=== PATIENT | female | born 1980 | race Caucasian/White ===

== ENCOUNTER 2019-04-22 17:09 | Emergency (ER) | payer MEDICAID ==
[~2019-04-22] VITALS: Ht 167.6 cm; Wt 71.2 kg
--- NOTE | 2019-04-22 17:40 | NUR ---
PT C/O RUQ ABD PAIN SINCE 11 AM THIS MORNING AFTER HEAVILY DRINKING LAST NOC. PT IS FROM [place] AND TOLD BY DOCTOR TO DRINK MINIMALLY TO SOME UNKNOWN LIVER CONDITION. DENIES N/V.
--- NOTE | 2019-04-22 17:47 | NUR ---
Rissa conway in ED - 04/22/19 at 1748 by BELÉN I AM ASSUMING CARE OF THIS PATIENT FROM JOSE (RN) WHILE HE HAS A LUNCHBREAK. SBAR REPORT WAS EXCHANGED AT THE BEDSIDE.
--- NOTE | 2019-04-22 17:47 | NUR ---
I AM ASSUMING CARE OF THIS PATIENT FROM ZACHARIAH (ADAM) WHILE HE HAS A LUNCHBREAK. SBAR REPORT WAS EXCHANGED AT THE BEDSIDE.
[2019-04-22 17:59] LABS: MEAN CORPUSCULAR HEMOGLOBIN 38.7 pg (27.0-34.8); MEAN CORPUSCULAR HGB CONC 33.3 g/dL (32.4-35.8); MEAN CORPUSCULAR VOLUME 116.3 fL (80-100); MEAN PLATELET VOLUME 9.2 fL (7.4-10.4); PLATELET COUNT 130 x10^3/uL (130-400); RED BLOOD COUNT 3.38 x10^6/uL (3.82-5.3); RED CELL DISTRIBUTION WIDTH 14.8 % (9.6-15.2)
[2019-04-22] MEDS ORDERED: SODIUM CHLORIDE FLUSH 10ML SYR IVF ONE (18:00)
--- NOTE | 2019-04-22 18:05 | NUR ---
pt ambulated to the restroom with a steady gait. urine sample provided and walked to the lab for analysis.
[2019-04-22 18:06] LABS: ALANINE AMINOTRANSFERASE 62 U/L (12-78); ALBUMIN 3.3 g/dL (3.4-5.0); ANION GAP 9 mmol/L (5-15); CALCIUM 8.8 mg/dL (8.5-10.1); CHLORIDE 108 mmol/L (98-107); CREATININE 0.64 mg/dL (0.55-1.02)
[2019-04-22 18:08] LABS: ALKALINE PHOSPHATASE 117 U/L (45-117); BILIRUBIN,TOTAL 1.5 mg/dL (0.2-1.0); TOTAL PROTEIN 6.6 g/dL (6.4-8.2)
[2019-04-22 18:20] LABS: HCG UR SG 1.025 (1.003-1.030); MICROSCOPIC INDICATED
[2019-04-22] MEDS ORDERED: POTASSIUM CHLORIDE 20 MEQ TAB.ER.PRT PO ONE (18:30)
[2019-04-22] MEDS ORDERED: POTASSIUM CHLORIDE 20 MEQ TAB.ER.PRT ONE (18:32)
[2019-04-22 18:38] LABS: CULTURE INDICATED? NO
[2019-04-22 18:45] LABS: BASOPHILS # (AUTO) 0.03 x10^3/uL (0-0.1); BASOPHILS % (AUTO) 0 % (0-1); EOSINOPHILS # (AUTO) 0.03 x10^3/uL (0-0.4); EOSINOPHILS % (AUTO) 0 % (1-7); LYMPHOCYTES # (AUTO) 3.02 x10^3/uL (1-3.4); LYMPHOCYTES % (AUTO) 30 % (22-44); MD SCAN; MONOCYTES # (AUTO) 0.49 x10^3/uL (0.2-0.8); MONOCYTES % (AUTO) 5 % (2-9); NEUTROPHILS # (AUTO) 6.48 x10^3/uL (1.8-6.8); NEUTROPHILS % (AUTO) 65 % (42-75)
--- NOTE | 2019-04-22 19:10 | NUR ---
CHART UP FOR MD RECHECK. PT AWARE.
[2019-04-22 19:17] VITALS: BP 132/70
[2019-04-22] MEDS ORDERED: MAALOX/HYOSCYAMINE/LIDOCAINE 45 ML BTL ONE (19:23)
[2019-04-22] MEDS ORDERED: MAALOX/HYOSCYAMINE/LIDOCAINE 45 ML BTL PO ONE (19:30)
== END 2019-04-22 19:40 | disposition home or self-care (01) ==
LOC: ED 19:34
DX: K29.20 Alcoholic gastritis without bleeding (principal); F10.129 Alcohol abuse with intoxication, unspecified; F17.200 Nicotine dependence, unspecified, uncomplicated; R94.5 Abnormal results of liver function studies; R74.9 Abnormal serum enzyme level, unspecified
CPT/HCPCS: 36415; 76700; 80053; 81001; 81025; 83690; 85025; 99284